=== PATIENT | male | born 1970 | race Caucasian/White ===

== ENCOUNTER 2016-12-09 18:06 | Inpatient (IN) | payer OTHER ==
[~2016-12-09] VITALS: Ht 175.3 cm; Wt 92.9 kg
[2016-12-09 22:17] LABS: BASOPHIL % 0.4 % (0-2); PLATELET COUNT 198 x10^3mcL (130-400); RED CELL DISTRIBUTION WIDTH 12.9 % (11.5-14.5)
[2016-12-09 22:23] LABS: CALCIUM 8.6 mg/dL (8.5-10.1); CARBON DIOXIDE 26.6 mmol/L (21-32); CHLORIDE SERUM 108 mmol/L (98-107); CREATININE SERUM 1.1 mg/dL (0.7-1.3); GFR1 > 60 mL/min; GLUCOSE SERUM 77 mg/dL (74-106); POTASSIUM SERUM 3.7 mmol/L (3.5-5.1); SODIUM SERUM 142 mmol/L (136-145)
[2016-12-09 22:27] LABS: ALKALINE PHOSPHATASE 62 U/L (46-116); ALT/SGPT 53 U/L (16-63); AMYLASE 63 U/L (25-115); AST/SGOT 22 U/L (15-37); BILIRUBIN TOTAL 0.6 mg/dL (0.20-1.00); LIPASE 113 IU/L (73-393); TOTAL PROTEIN, SERUM 6.9 g/dL (6.4-8.2)
[2016-12-09 22:35] LABS: ALBUMIN 3.3 g/dL (3.4-5.0)
[2016-12-10] MEDS ORDERED: VENTOLIN H0.09 MG/A1 (02:15)
[2016-12-10 03:13] LABS: CHOLESTEROL/HDL RATIO 3.3; MAGNESIUM 2.2 mg/dL (1.8-2.4); PHOSPHOROUS 2.7 mg/dL (2.5-4.9)
[2016-12-10 03:23] LABS: FREE T4 1.03 ng/dL (0.76-1.46); FREE THYROXINE INDEX 2.8 ug/dL (1.4-4.5); T4(THYROXINE) 7.7 ug/dL (4.7-13.3)
[2016-12-10 04:10] VITALS: BP 122/82
[2016-12-10 06:22] LABS: BASOPHIL % 0.8 % (0-2); PLATELET COUNT 178 x10^3mcL (130-400); RED CELL DISTRIBUTION WIDTH 13.1 % (11.5-14.5)
[2016-12-10 06:24] LABS: CALCIUM 8.3 mg/dL (8.5-10.1); CARBON DIOXIDE 27.4 mmol/L (21-32); CHLORIDE SERUM 106 mmol/L (98-107); GFR1 > 60 mL/min; GLUCOSE SERUM 90 mg/dL (74-106); POTASSIUM SERUM 3.7 mmol/L (3.5-5.1); SODIUM SERUM 141 mmol/L (136-145)
[2016-12-10 09:58] VITALS: BP 130/84
[2016-12-10 13:29] LABS: microscopic required? NO
[2016-12-10 13:37] LABS: UA SPECIFIC GRAVITY 1.015 (1.005-1.035); urine erythrocyte NEGATIVE (NEGATIVE)
[2016-12-10 14:02] LABS: AMPHETAMINE QUAL UR NONE DETECTED (NEG <=1000)
[2016-12-10 14:46] LABS: T3 TOTAL 0.94 ng/mL
[2016-12-10 17:47] VITALS: BP 129/81
[2016-12-10 21:49] VITALS: BP 123/83
[2016-12-11 06:21] LABS: BASOPHIL % 0.7 % (0-2); PLATELET COUNT 188 x10^3mcL (130-400); RED CELL DISTRIBUTION WIDTH 12.8 % (11.5-14.5)
[2016-12-11 06:29] LABS: CALCIUM 8.3 mg/dL (8.5-10.1); CHLORIDE SERUM 110 mmol/L (98-107); GFR1 > 60 mL/min; GLUCOSE SERUM 96 mg/dL (74-106); PHOSPHOROUS 2.5 mg/dL (2.5-4.9); POTASSIUM SERUM 4.2 mmol/L (3.5-5.1); SODIUM SERUM 141 mmol/L (136-145)
[2016-12-11 06:39] VITALS: BP 113/79
[2016-12-11 09:12] VITALS: BP 131/88
[2016-12-11] MEDS ORDERED: LAC PO (10:28)
[2016-12-11] MEDS ORDERED: LEVAQUIN750 MG PO (10:38)
[2016-12-11] MEDS ORDERED: FLA500 PO (10:39)
[2016-12-11] MEDS ORDERED: COL100 PO (10:51)
[2016-12-11 12:30] VITALS: BP 131/88
== END 2016-12-11 14:20 | disposition home or self-care (01) | DRG 244 ==
LOC: ED 18:06 → DU 12-10 02:19 → MU 12-10 02:19 → DU 12-10 03:15 → MU 12-10 12:51
PROVIDERS: Emergency Medicine; ADMIT Family Medicine
DX: K57.32 Diverticulitis of large intestine without perforation or abscess without bleeding (principal); E44.1 Mild protein-calorie malnutrition; E78.5 Hyperlipidemia, unspecified; J45.909 Unspecified asthma, uncomplicated; N28.1 Cyst of kidney, acquired; Z68.30 Body mass index [BMI] 30.0-30.9, adult; Z83.3 Family history of diabetes mellitus
CPT/HCPCS: 83880; 84439; J1885; J1956; J3490; J7030; Q0092